=== PATIENT | male | born 1990 | race African-American/Black ===

== ENCOUNTER 2019-05-25 12:33 | Emergency (ER) | payer OTHER ==
[~2019-05-25] VITALS: Ht 175.3 cm; Wt 73.9 kg
[2019-05-25 12:39] VITALS: BP 119/45
--- NOTE | 2019-05-25 12:46 | NUR ---
C/O SNEEZING, RHINORRHEA, NASAL CONGESTION, CHILLS, DECREASED APPETITE X 1 WK. STATES MILD PAIN 3/10 TO BACK OF NECK, DENIES INJURY. DENIES SORE THROAT, COUGH. +NAUSEA, -VOMITING. LUNGS CTAB. NO ACUTE DISTRESS. AFEBRILE NOW. VSS; BEDRAILS UP X2 AND PADDED FOR SZ PRECAUTIONS; ERMD TO EVALUATE. HX- SEIZURE NKA
--- NOTE | 2019-05-25 12:59 | NUR ---
INFLUENZA SWAB HANDED TO LABORER GENERAL.
--- NOTE | 2019-05-25 14:08 | NUR ---
DR. MANNING SPEAKING WITH PT AT BEDSIDE.
[2019-05-25] MEDS ORDERED: NACL 0.9% 1,000 ML IV ONE (14:20)
--- NOTE | 2019-05-25 14:40 | NUR ---
[employer] C[employer]ODIAN AT BEDSIDE.
[2019-05-25 14:52] LABS: BASOPHILS % (AUTO) 0.7 % (0.0-2.0); EOSINOPHILS # (AUTO) 0.1 K/uL (0-0.4); EOSINOPHILS % (AUTO) 1.4 % (0.0-4.0); HEMATOCRIT 47.6 % (36-52); HEMOGLOBIN 16.4 g/dL (12.0-18.0); LYMPHOCYTES # (AUTO) 1.7 K/uL (2.0-11.5); LYMPHOCYTES % (AUTO) 25.6 % (20.5-51.1); MEAN CORPUSCULAR HEMOGLOBIN 30 pg (27-31); MEAN CORPUSCULAR HGB CONC 34 g/dL (33-37); MEAN CORPUSCULAR VOLUME 86.6 fL (80-94); MONOCYTES # (AUTO) 0.6 K/uL (0.8-1.0); MONOCYTES % (AUTO) 9.4 % (1.7-9.3); NEUTROPHILS # (AUTO) 4.1 K/uL (1.8-7.7); NEUTROPHILS % (AUTO) 62.9 % (42.2-75.2); PLATELET COUNT (AUTO) 217 K/uL (140-450); RED CELL DISTRIBUTION WIDTH 14.1 % (11.6-13.7); WHITE BLOOD COUNT (AUTO) 6.5 K/uL (4.8-10.8)
--- NOTE | 2019-05-25 15:09 | NUR ---
REFUSED IV START AT THIS TIME. STATES HE FEELS STRESSED RIGHT NOW, PT IS SPEAKING WITH FAMILY MEMBER AT BEDSIDE.
[2019-05-25 15:11] LABS: ALBUMIN 4.4 g/dL (3.4-5.0); ANION GAP 13.5 (8-16); CARBON DIOXIDE 28.4 mmol/L (21-32); CREATININE 0.9 mg/dL (0.7-1.3); POTASSIUM 3.9 mmol/L (3.5-5.1); TOTAL BILIRUBIN 0.4 mg/dL (0.0-1.0)
[2019-05-25] MEDS ORDERED: DIVALPROEX 500 MG TABEC PO ONE (16:15)
--- NOTE | 2019-05-25 16:26 | NUR ---
PT WILL BE PICKED UP BY FAMILY MEMBER AT D/C
[2019-05-25 16:40] VITALS: BP 130/60
== END 2019-05-25 16:40 | disposition home or self-care (01) ==
LOC: MED 12:33
DX: G40.89 Other seizures (principal)
CPT/HCPCS: 36415; 80053; 85025; 87804; 99283